=== PATIENT | female | born 1995 | race Caucasian/White ===

== ENCOUNTER 2016-09-28 15:10 | Emergency (ER) | payer MEDICAID ==
--- NOTE | 2016-09-28 15:49 | ER PHYSICIAN DOCUMENTATION ---
Physician Documentation [facility] Name:Talia Talley Age:21 yrs Sex:Female :1995 Arrival Date:09/28/2016 Time:15:10 Bed1 Private MD: Osorio Mathur Disposition: 09/28/16 15:40 Discharged to Home/Self Care. Impression: Finger Contusion. - Condition is Good. - Discharge Instructions: FINGER CONTUSION. - Medical Reconciliation form form. - Follow up: Private Physician; When: As needed; Reason: Continuance of care. - Problem is new. - Symptoms have improved. HPI: 09/28 15:47 This 21 yrs old Female presents to ER via Private Vehicle with complaints of jm Finger Injury. 15:47 The patient or guardian reports injury. The complaints affect the dorsal aspect of jm proximal phalanx of right index finger, dorsal aspect of proximal phalanx of right middle finger and dorsal aspect of proximal phalanx of right ring finger. Context: resulted from a crush injury, door. Onset: The symptom(s)/episode began/occurred just prior to arrival. Historical: - Allergies: No known drug Allergies; - Home Meds: 1. IUD - PMHx: None; - PSHx: None; - Tetanus: unknown. - Ebola Screening: : No symptoms or risks identified at this time. . - Immunization history: Flu Vaccine None. - Social history: Smoking status: Patient uses tobacco products, heavy tobacco smoker. Patient/guardian denies using alcohol, marijuana. ROS: 15:48 Constitutional: Negative for fever. jm 15:48 MS/extremity: Positive for pain, swelling. 15:48 Skin: Positive for swelling. Exam: 15:48 Constitutional: The patient appears alert, awake, obese. jm 15:48 Musculoskeletal/extremity: Extremities: grossly normal except: noted in the dorsal aspect of proximal phalanx of right index finger, dorsal aspect of proximal phalanx of right middle finger and dorsal aspect of proximal phalanx of right ring finger: decreased ROM, pain, tenderness, There is no evidence of deformity, Circulation is intact in all extremities. Perfusion: the extremity is with brisk capillary refill, Sensation intact. Vital Signs: 15:26 BP 129 / 84; Pulse 98; Resp 18; Temp 98.5; Pulse Ox 94% on R/A; Weight 90.72 kg; Height in 5 ft. 1 in. (154.94 cm); Pain 6/10; 15:26 Body Mass Index 37.79 (90.72 kg, 154.94 cm) [facility]: 15:32 Patient medically screened. 15:49 Differential diagnosis: closed fracture, contusion. Data reviewed: vital signs, nurses jm notes, radiologic studies, and as a result, I will discharge patient. Test interpretation: by ED physician or midlevel provider: plain radiologic studies. Counseling: I had a detailed discussion with the patient and/or guardian regarding: the historical points, exam findings, and any diagnostic results supporting the discharge/admit diagnosis, radiology results, the need for outpatient follow up, with the patient's primary care provider. ED course: No fx noted. Dx is contusions . Dispensed Medications: No medications were administered Signatures: Padmini Orellana, RN RN Osorio Conner MD MD jm
--- NOTE | 2016-09-28 15:49 | ER NURSING DOCUMENTATION ---
Nurse's Notes [facility] Name:Talia Talley Age:21 yrs Sex:Female :1995 Arrival Date:09/28/2016 Time:15:10 Bed1 Private MD: Diagnosis:Finger Contusion Presentation: 09/28 15:24 Presenting complaint: Patient states: Pt states she slammed her right hand in the door ma at work 1 hour [employer]. Transition of care: Home. 15:24 Acuity: LILIANA 4 ma 15:24 Method Of Arrival: Private Vehicle ma Triage Assessment: 15:26 General: Appears in no apparent distress, well developed, well nourished, well groomed, ma Behavior is cooperative. Pain: Pain currently is 6 out of 10 on a pain scale. Musculoskeletal: Swelling present in palmar aspect of distal phalanx of right ring finger, palmar aspect of middle phalanx of right ring finger, palmar aspect of proximal phalanx of right ring finger, palmar aspect of distal phalanx of right middle finger, palmar aspect of middle phalanx of right middle finger, palmar aspect of proximal phalanx of right middle finger, palmar aspect of distal phalanx of right index finger, palmar aspect of middle phalanx of right index finger and palmar aspect of proxima; phalanx of right index finger. Injury Description: Crush injury. Historical: - Allergies: No known drug Allergies; - Home Meds: 1. IUD - PMHx: None; - PSHx: None; - Tetanus: unknown. - Ebola Screening: : No symptoms or risks identified at this time. . - Immunization history: Flu Vaccine None. - Social history: Smoking status: Patient uses tobacco products, heavy tobacco smoker. Patient/guardian denies using alcohol, marijuana. Screenin:27 Infectious Disease Risk None. Abuse screen: Denies threats or abuse. Nutritional ma screening: No deficits noted. Assessment: 15:47 Reassessment: Patient appears in no apparent distress at this time. ma Vital Signs: 15:26 BP 129 / 84; Pulse 98; Resp 18; Temp 98.5; Pulse Ox 94% on R/A; Weight 90.72 kg; Height ma 5 ft. 1 in. (154.94 cm); Pain 6/10; 15:26 Body Mass Index 37.79 (90.72 kg, 154.94 cm) va ED Course: 15:23 Patient arrived in ED. hb 15:23 Osorio Franks MD is Attending Physician. esteban 15:24 Padmini Orellana, RN is Primary Nurse. ma 15:25 Triage completed. ma 15:27 Valuables Patient has correct armband on for positive identification. Bed in low ma position. Call light in reach. Adult w/ patient. 15:28 Ice pack to injury. ma Administered Medications: No medications were administered Outcome: 15:40 Discharge ordered by . esteban 15:47 Discharged to home rafy 15:47 Condition: stable 15:47 Discharge instructions given to patient, Instructed on discharge instructions, follow up and referral plans. [facility] Demonstrated understanding of instructions. 15:48 Patient left the ED. rafy 09/29 10:34 Discharge F/U Call: Unable to reach: left voicemail: lp Signatures: Padmini Orellana, RN RN Jeannette Carmona, RN RN Osorio Levin MD MD jm Bird, Heather hb
--- NOTE | 2016-09-28 18:12 | RADIOLOGY REPORT ---
Three views of the right third finger demonstrate no displaced fracture or dislocation. The visualized joints appear unremarkable. IMPRESSION: No displaced injury is identified. If clinically indicated, further evaluation and/or follow-up may be of benefit. ANNA
== END 2016-09-28 15:48 | disposition home or self-care (01) ==
LOC: ER 15:10 → EDBD 15:10 → ER 15:48
DX: S60.021A Contusion of right index finger without damage to nail, initial encounter (principal); S60.031A Contusion of right middle finger without damage to nail, initial encounter; S60.041A Contusion of right ring finger without damage to nail, initial encounter; W23.0XXA Caught, crushed, jammed, or pinched between moving objects, initial encounter; Y92.59 Other trade areas as the place of occurrence of the external cause
CPT/HCPCS: 99281